=== PATIENT | female | born 1980 | race Caucasian/White ===

== ENCOUNTER 2017-09-08 23:11 | Emergency (ER) | payer SELFPAY ==
[2017-09-08] MEDS ORDERED: 0.9 % SODIUM CHLORIDE 1,000 ML IV ONE (23:40)
[2017-09-08] MEDS ORDERED: fentaNYL CITRATE/PF 100 MCG/ 2ML AMP IVP ONE (23:41)
--- NOTE | 2017-09-08 23:49 | ED Physician Documentation ---
Abdominal Pain - HISTORIAN Historian: patient - HPI Chief Complaint: Abdominal Pain Onset: hours (1-2 hours) Timing: worse Context: denies: out of country travel, bad food, recent trauma Severity: severe Quality: pain Associated Symptoms: denies: fever, chills, nausea, vomiting Exacerbated by: nothing Relieved by: nothing Further Comments: yes (37 year old female patient presents with complaint of abdominal pain. 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 Patient reports LMP 07/26/17, states she began spotting 2-3 days ago. 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 ago) - FAMILY HX Family History: denies: none - PAST HX Past History: other (G1, P0, Ab 1) Other History: none Home Medications: Ambulatory Orders Medication Instructions Recorded NK [NK] 09/09/17 Allergies/Adverse Reactions: Allergies Allergy/AdvReac Type Severity Reaction Status Date / Time No Known Drug Allergies Allergy Verified 09/09/17 00:15 - VITAL SIGNS Vital Signs: Vital Signs Temp Pulse Resp BP Pulse Ox 98.4 F 93 H 22 133/72 99 09/08/17 23:11 09/08/17 23:11 09/08/17 23:11 09/08/17 23:11 09/08/17 23:11 - REVIEWED ASSESSMENTS Nursing Assessment Reviewed: Yes Vitals Reviewed: Yes Progress - Progress Progress: Reviewed UDS and positive urine HCG with patient. 6 weeks, 3 days by dates. Cannot rule out ectopic , threatened AB or appendicitis. No ultrasound available at [facility] Patient medicated for pain with fentanyl prior to speculum exam. 2350 CBC pending; technical difficulty with lab machine. 001 Call to [facility]; case discussed with Mark - consulting ROQUE 24 Call from [place] - transfer refused by Dr Mckeon [address] Faina NEVAREZ at [facility] - recommended patient come through ER. [address] Shafer; vitals remain stable. Pain at 6/10 - additional Fentanyl ordered. ED Results Lab/Radiology - Lab Results Lab Results: Lab Results 09/08/17 09/08/17 23:50 23:50 WBC 13.50 K/ul H K/ul (4.00-12.00) RBC 3.93 M/ul M/ul (3.90-5.20) Hgb 11.2 g/dL L g/dL (12.0-16.0) Hct 35.1 % % (34.5-46.5) MCV 89.4 fl fl (80.0-100.0) MCH 28.6 pg pg (28.0-34.0) MCHC 31.9 g/dL g/dL (30.0-36.0) RDW 14.7 % H % (11.3-14.3) Plt Count 456 K/mm3 H K/mm3 (130-400) Neut % (Auto) 84.9 % H % (39.0-79.0) Lymph % (Auto) 10.4 % L % (16.0-50.0) Stark % (Auto) 2.3 % % (0.0-11.0) Eos % (Auto) 1.7 % % (0.0-6.8) Baso % (Auto) 0.3 (0.0-1.5) Neut # (Auto) 11.4 # k/uL H # k/uL (1.4-7.7) Lymph # (Auto) 1.4 # k/uL # k/uL (0.6-4.0) Stark # (Auto) 0.3 # k/uL # k/uL (0.0-0.9) Eos # (Auto) 0.2 # k/uL # k/uL (0.0-0.6) Baso # (Auto) 0.0 # k/uL # k/uL (0.0-0.5) Reactive Lymphs % 0.4 % % (0.0-5.0) Reactive Lymphs # 0.1 # k/uL # k/uL (0.0-0.8) Sodium 140 mmol/L mmol/L (136-145) Potassium 3.8 mmol/L mmol/L (3.5-5.1) Chloride 103 mmol/L mmol/L (98-107) Carbon Dioxide 22 mmol/L mmol/L (22-30) BUN 28 mg/dL H mg/dL (7-17) Creatinine 0.70 mg/dL mg/dL (0.52-1.04) Estimated Creat Clear 93 Est GFR ( Amer) > 60 (60 - ) Est GFR (Non-Af Amer) > 60 (60 - ) Glucose 84 mg/dL mg/dL (74-106) Calcium 9.5 mg/dL mg/dL (8.4-10.2) Total Bilirubin 0.8 mg/dL mg/dL (0.2-1.3) AST 37 U/L U/L (15-46) ALT 27 U/L U/L (13-69) Alkaline Phosphatase 95 U/L U/L (38-126) Total Protein 8.6 g/dL H g/dL (6.3-8.2) Albumin 5.1 g/dL H g/dL (3.5-5.0) - Orders Orders: ED Orders Category Date Time Status Place IV Lock 1T Care 09/08/17 23:40 Active ABO/RH TYPE Stat Lab 09/08/17 Ordered CBC/PLATELET/DIFF Stat Lab 09/08/17 23:50 Completed CMP Stat Lab 09/08/17 23:50 Completed DRUG SCREEN URINE MEDICAL ONLY Stat Lab 09/08/17 Ordered HCG QUANTITATIVE Stat Lab 09/08/17 Ordered UA W/MICRO IF INDICATED Stat Lab 09/08/17 23:26 Ordered URINE HCG Stat Lab 09/08/17 Ordered 0.9 % Sodium Chloride [Normal Saline] 1,000 ml Med 09/08/17 23:40 Discontinued IV NOW 0.9 % Sodium Chloride [Normal Saline] 1,000 ml Med 09/09/17 00:24 Discontinued IV NOW fentaNYL CITRATE/PF [Duragesic] Med 09/08/17 23:41 Discontinued 50 mcg IVP NOW ONE fentaNYL CITRATE/PF [Duragesic] Med 09/09/17 00:23 Discontinued 50 mcg IVP NOW ONE Abdominal Pain Physical Exam - Physical Exam General Appearance: moderate distress EENT: eye inspection normal, ENT inspection normal, pharynx normal, no signs of dehydration, TYREL, no nystagmus, TM's nml RESPIRATORY: no resp distress, chest non-tender, breath sounds normal CVS: reg rate & rhythm, heart sounds normal, equal pulses, no murmur, no gallop , PMI nml, no JVD, no friction rub, 24 ABDOMEN: soft, no organomegaly, tenderness (RLQ - 9/10; with mild palpation; c/ o pain with palpation of supra pubic area), abnormal bowel sounds PELVIC EXAM: normal external exam, no cerv. motion tender, no masses, vaginal bleeding (significant amount of vaginal bleeding noted; no clots; unable to visual cervix due to large amount of bleeding in vaginal canal; patient c/o severe pain with speculum exam. 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, CN's nml as tested, motor nml, sensation nml Vital Signs: Vital Signs Temp Pulse Resp BP Pulse Ox 98.4 F 93 H 22 133/72 99 09/08/17 23:11 09/08/17 23:11 09/08/17 23:11 09/08/17 23:11 09/08/17 23:11 Discharge Clincal Impression: Vaginal bleeding affecting early , Abdominal pain affecting , Threatened , rule out ectopic Leukocytosis Qualifiers: Leukocytosis type: unspecified Qualified Code(s): D72.829 - Elevated white blood cell count, unspecified Referrals: Kamran Mohr MD [Primary Care Provider] - 2 Days Condition: Serious Disposition: XFER SHT-TRM HOSP Decision to Admit: NO Decision Time: 00:47
[2017-09-09 00:15] LABS: BASOPHILS % 0.3 (0.0-1.5); EOSINOPHILS % 1.7 % (0.0-6.8); MEAN CORPUSCULAR HEMOGLOBIN 28.6 pg (28.0-34.0); MEAN CORPUSCULAR VOLUME 89.4 fl (80.0-100.0); MONOCYTES % 2.3 % (0.0-11.0); NEUTROPHILS # 11.4 # k/uL (1.4-7.7)
[2017-09-09 00:16] LABS: eGFR (African) > 60; eGFR (Non-African) > 60
[2017-09-09] MEDS ORDERED: fentaNYL CITRATE/PF 100 MCG/ 2ML AMP IVP ONE (00:23)
[2017-09-09] MEDS ORDERED: 0.9 % SODIUM CHLORIDE 1,000 ML IV ONE (00:24)
[2017-09-09 00:53] VITALS: BP 105/74
[2017-09-09 07:07] LABS: APPEARANCE,URINE CLEAR (CLEAR); COLOR,URINE AMBER (YELLOW); OCCULT BLOOD,URINE 3+ (NEGATIVE); PH URINE 5.5 (5.0 - 8.0); UROBILINOGEN URINE 0.2 Eu (0.2-1.0)
[2017-09-09 07:09] LABS: CANNABINOIDS NON NEGATIVE ng/mL (< 50); METHYLENEDIOXYMETHAMPHETAMINE NEGATIVE ng/mL (<500)
[2017-09-13 18:02] LABS: CANNABINOIDS CONFIRMATION >150 ng/mL (<15)
== END 2017-09-09 00:50 | disposition short-term general hospital (02) ==
LOC: ED 23:11
DX: O20.0 Threatened abortion (principal); D72.829 Elevated white blood cell count, unspecified
CPT/HCPCS: 80053; 80377; 81002; 81025; 84702; 85025; J3010; J7030; 96374; 96375; 99283; G0481; S1016

== ENCOUNTER 2017-09-09 15:33 | Emergency (ER) | payer SELFPAY ==
--- NOTE | 2017-09-09 15:37 | ED Physician Documentation ---
Abdominal Pain - HISTORIAN Historian: patient - HPI Stated Complaint: abdominal pain Chief Complaint: Abdominal Pain Onset: hours (2) Duration: constant, sudden-onset, persistent, worse Timing: still present Context: recent trauma (spont ). denies: bad food Severity: severe Quality: pain, cramping, sharp Associated Symptoms: denies: fever, chills, nausea Exacerbated by: other (nothing makes it worse per her statement it is "just terrible" ) Relieved by: nothing Further Comments: yes (she reports she was seen in the ER last night for abodminal pain "just the same" she was transfered to [facility]. She was told her pregnany was removed in the ER and she did have improvement of pain. She states she was discharged and she was feeling "good" until about 2-3 pm and she had sudden and severe pain in lower abdomen ( she indicated with touch her pelvic area) and she has continued to have bleeding "just like a normal " she denies any clots.) - ROS CONST: no problems GI/: none CVS/RESP: none MS/SKIN/LYMPH: none NEURO/PSYCH: none - SOCIAL HX Smoking History: cigarettes Alcohol Use: none Drug Use: marijuana, methamphetamines - FAMILY HX Family History: none - PAST HX Past History: none Ischemic Bowel Risk Factors: none Other History: none Surgeries/Procedures: none Immunizations: UTD Home Medications: Ambulatory Orders Medication Instructions Recorded NK [NK] 09/09/17 Allergies/Adverse Reactions: Allergies Allergy/AdvReac Type Severity Reaction Status Date / Time No Known Drug Allergies Allergy Verified 09/09/17 00:15 - VITAL SIGNS Vital Signs: Vital Signs Temp Pulse Resp BP Pulse Ox 97.7 F 76 16 97/41 98 09/09/17 16:48 09/09/17 16:48 09/09/17 16:48 09/09/17 16:48 09/09/17 16:48 - REVIEWED ASSESSMENTS Nursing Assessment Reviewed: Yes Vitals Reviewed: Yes Progress - Progress Progress: 1620: pain is now a 2 on 1/10 scale DG ED Results Lab/Radiology - Lab Results Lab Results: Lab Results 09/09/17 09/09/17 09/09/17 15:45 15:45 15:45 WBC 13.40 K/ul H K/ul (4.00-12.00) RBC 3.62 M/ul L M/ul (3.90-5.20) Hgb 10.2 g/dL L g/dL (12.0-16.0) Hct 32.5 % L % (34.5-46.5) MCV 89.7 fl fl (80.0-100.0) MCH 28.2 pg pg (28.0-34.0) MCHC 31.5 g/dL g/dL (30.0-36.0) RDW 14.7 % H % (11.3-14.3) Plt Count 430 K/mm3 H K/mm3 (130-400) Neut % (Auto) 75.4 % % (39.0-79.0) Lymph % (Auto) 17.2 % % (16.0-50.0) Hancock % (Auto) 3.1 % % (0.0-11.0) Eos % (Auto) 2.6 % % (0.0-6.8) Baso % (Auto) 0.6 (0.0-1.5) Neut # (Auto) 10.1 # k/uL H # k/uL (1.4-7.7) Lymph # (Auto) 2.3 # k/uL # k/uL (0.6-4.0) Hancock # (Auto) 0.4 # k/uL # k/uL (0.0-0.9) Eos # (Auto) 0.4 # k/uL # k/uL (0.0-0.6) Baso # (Auto) 0.1 # k/uL # k/uL (0.0-0.5) Reactive Lymphs % 1.1 % % (0.0-5.0) Reactive Lymphs # 0.2 # k/uL # k/uL (0.0-0.8) Sodium 142 mmol/L mmol/L (136-145) Potassium 3.7 mmol/L mmol/L (3.5-5.1) Chloride 107 mmol/L mmol/L (98-107) Carbon Dioxide 23 mmol/L mmol/L (22-30) BUN 18 mg/dL H mg/dL (7-17) Creatinine 0.60 mg/dL mg/dL (0.52-1.04) Est GFR ( Amer) > 60 (60 - ) Est GFR (Non-Af Amer) > 60 (60 - ) Glucose 101 mg/dL mg/dL (74-106) Calcium 8.7 mg/dL mg/dL (8.4-10.2) Total Bilirubin 0.6 mg/dL mg/dL (0.2-1.3) AST 26 U/L U/L (15-46) ALT 28 U/L U/L (13-69) Alkaline Phosphatase 70 U/L U/L (38-126) Total Protein 7.0 g/dL g/dL (6.3-8.2) Albumin 4.2 g/dL g/dL (3.5-5.0) Serum HCG, Qual Positive H (NEGATIVE) - Orders Orders: ED Orders Category Date Time Status Place IV Lock 1T Care 09/09/17 15:42 Active CBC/PLATELET/DIFF Stat Lab 09/09/17 15:45 Completed CMP Stat Lab 09/09/17 15:45 Completed SERUM HCG Stat Lab 09/09/17 15:45 Completed 0.9 % Sodium Chloride [Normal Saline] 1,000 ml Med 09/09/17 15:45 Discontinued IV Q1H fentaNYL CITRATE/PF [Duragesic] Med 09/09/17 15:42 Discontinued 50 mcg IVP NOW ONE Abdominal Pain Physical Exam - Physical Exam General Appearance: alert, moderate distress EENT: eye inspection normal NECK: normal inspection RESPIRATORY: no resp distress, chest non-tender, breath sounds normal CVS: reg rate & rhythm, heart sounds normal, equal pulses ABDOMEN: normal bowel sounds, tenderness, guarding PELVIC EXAM: other (will defer until case discussed with ER physician ) SKIN: warm/dry, normal color EXTREMITIES: non-tender, normal range of motion, no evidence of injury, no edema NEURO: oriented X3, CN's nml as tested, motor nml, sensation nml, mood/affect nml Vital Signs: Vital Signs Temp Pulse Resp BP Pulse Ox 97.7 F 76 16 97/41 98 09/09/17 16:48 09/09/17 16:48 09/09/17 16:48 09/09/17 16:48 09/09/17 16:48 Discharge Clincal Impression: Abdominal pain Qualifiers: Abdominal location: right lower quadrant Qualified Code(s): R10.31 - Right lower quadrant pain Referrals: Kamran Mohr MD [Primary Care Provider] - 2 Days Comments: 1. Dr Fam [id number]- [facility] will accept for further eval DG Condition: Serious Disposition: 02 XFER SHT-TRM HOSP Decision to Admit: NO Date of Decison to Admit: 09/09/17 Decision Time: 16:20
[2017-09-09] MEDS ORDERED: fentaNYL CITRATE/PF 100 MCG/ 2ML AMP IVP ONE (15:42)
[2017-09-09] MEDS ORDERED: 0.9 % SODIUM CHLORIDE 1,000 ML IV ONE (15:45)
[2017-09-09 15:52] LABS: BASOPHILS % 0.6 (0.0-1.5); EOSINOPHILS % 2.6 % (0.0-6.8); MEAN CORPUSCULAR HEMOGLOBIN 28.2 pg (28.0-34.0); MEAN CORPUSCULAR VOLUME 89.7 fl (80.0-100.0); MONOCYTES % 3.1 % (0.0-11.0); NEUTROPHILS # 10.1 # k/uL (1.4-7.7)
[2017-09-09 15:58] LABS: eGFR (Non-African) > 60
[2017-09-09 16:51] VITALS: BP 97/41
== END 2017-09-09 16:48 | disposition short-term general hospital (02) ==
LOC: ED 15:33
DX: R10.31 Right lower quadrant pain (principal)
CPT/HCPCS: 80053; 84703; 85025; J3010; J7030; 99284; S1016